=== PATIENT | female | born 1995 | race Caucasian/White ===

== ENCOUNTER 2020-05-18 09:02 | Emergency (ER) | payer MEDICAID, SELFPAY ==
[2020-05-18 09:07] VITALS: BP 117/86; PULSE 100; RESP 18; TEMP 36.4; O2SAT 98
[2020-05-18] MEDS: METOCLOPRAMIDE HCL INJ 10 MG/2 ML VIAL IV PUSH (09:42)
[2020-05-18] MEDS: DEXTROSE 5%/LACTATED RINGERS 1,000 ML 999 ML IV CONT (09:42)
--- NOTE | 2020-05-18 09:42 | PC.NURSE ---
Pt unable to provide urine sample at this time, fluids infusing.
[2020-05-18 09:49] LABS: Basophils Percent Auto 0.3 % (0.2-1.2); Hematocrit 41.2 % (37.0-47.0); Hemoglobin 14.4 g/dL (12.0-15.0); Immature Granulocyte Absolute 0.03 K/mm3 (0.00-0.031); Immature Granulocyte Percent A 0.3 % (0-0.5); Lymphocytes Absolute Auto 1.16 K/mm3 (0.9-3.2); Lymphocytes Percent Auto 9.8 % (18.3-44.2); Mean Corpuscular Volume 91.6 fl (80-100); Mean Platelet Volume 8.4 fl (7.4-10.4); Monocytes Absolute Auto 0.3 K/mm3 (0.1-0.6); Monocytes Percent Auto 2.9 % (2.6-8.5); Neutrophils Absolute Auto 10.3 K/mm3 (1.3-6.7); Neutrophils Percent Auto 86.7 % (45.5-73.1); Platelet Count Result 449 k/mm3 (150-375); Red Cell Distribution Width 12.3 % (11.5-14.5); White Blood Count 11.9 K/mm3 (4.5-10.0)
[2020-05-18 10:02] LABS: Alanine Aminotransferase 17 U/L (4-35); Albumin Level 5.2 g/dL (3.5-5.1); Alkaline Phosphatase 53 U/L (38-126); Anion Gap 20 mmol/L (8-16); Aspartate Amino Transferase 20 U/L (14-36); Bilirubin,Total 0.5 mg/dL (0.2-1.3); Blood Urea Nitrogen 18 mg/dL (7-17); Calcium 11.5 mg/dL (8.4-10.2); Carbon Dioxide 19 mmol/L (22-30); Chloride 101 mmol/L (98-107); Estimated CRCL calculation 119 ml/min; Estimated Glomerular Filt Rate > 60; Glucose 110 mg/dL (65-105); Potassium 3.6 mmol/L (3.4-5.0); Sodium 140 mmol/L (137-145)
--- NOTE | 2020-05-18 10:09 | ED.GENADULT ---
HPI - General Adult General Chief complaint: Nausea/Vomiting/Diarrhea <Isaias Caro PA-C - Last Filed: 05/18/20 12:01> Stated complaint: 9 weeks preg- cant keep anything down <JONNY Avilez Last Filed: 05/18/20 12:01> Time Seen by Provider: 05/18/20 09:14 <JONNY Avilez Last Filed: 05/18/20 12:01> Source: patient <JONNY Avilez Last Filed: 05/18/20 12:01> Mode of arrival: ambulatory <JONNY Avilez Last Filed: 05/18/20 12:01> Limitations: no limitations <JONNY Avilez Last Filed: 05/18/20 12:01> History of Present Illness HPI narrative: Patient presents with CC of persistent nausea and vomiting since finding out she was May 10. She believes she is approximately 9 weeks . She is and reports having persistent vomiting with her previous which required oral medication. She states she is working on obtaining insurance so she has not seen her OBGYN Dr Blake and when she called his office today she was directed to the ER. Patient reports that she smokes and smokes marijuana which typically curbs the nausea, but has not been working the past few days. She denies abdominal pain ,diarrhea, bloody stools or vomits, fever, chills, vaginal bleeding, or any other complaints. <JONNY Avilez Last Filed: 05/18/20 12:01> Related Data Allergies/adverse reactions: Allergies Allergy/AdvReac Type Severity Reaction Status Date / Time No Known Allergies Allergy Verified 05/18/20 09:11 <JONNY Avilez Last Filed: 05/18/20 12:01> Review of Systems Review of Systems: Narrative: CONSTITUTIONAL: Denies fever, chills, or sweats. EYES: Denies visual changes, redness, or discharge. ENT: Denies rhinorrhea, congestion, sore throat, or otalgia. CARDIOVASCULAR: Denies chest pain, palpitations, or edema. RESPIRATORY: Denies cough or dyspnea. GASTROINTESTINAL: Reports nausea and vomiting, Denies abdominal pain or diarrhea. GENITOURINARY: Denies dysuria or hematuria.Denies vaginal bleeding or cramping SKIN: Denies rash or itching. MUSCULOSKELETAL: Denies back pain, myalgia, or joint pain NEUROLOGIC: Denies headache, numbness, dizziness, or weakness. PSYCHIATRIC: Denies anxiety or depression. <Isaias Caro PA-C - Last Filed: 05/18/20 12:01> [facility] Social History Social History: Social History Gender identity (if verbalized by the patient): Female <Isaias Caro PA-C - Last Filed: 05/18/20 12:01> Exam Narrative: Exam Narrative: GENERAL: Appears slightly pale and uncomfortable hunched over emesis bag. HEAD: Normocephalic, atraumatic. EYES: PERRLA and EOMI. ENT: Nares clear, no rhinorrhea or epistaxis. Mucous membranes moist. Oropharynx without tonsillar hypertrophy exudate or other lesions. Bilateral TMs pearly atwood nonbulging NECK: Supple. No adenopathy or masses. No vertebral tenderness or loss of ROM. CHEST: Clear to auscultation. No respiratory distress. No wheezes rales or rhonchi HEART: Regular rate and rhythm. Normal peripheral pulses. ABDOMEN: Soft, nontender, nondistended, normal active bowel sounds. No bruises noted. EXTREMITIES: No acute changes in ROM. No edema. SKIN: Warm, dry, no rash. NEURO: No focal deficits. Alert and oriented x3. Clear speech. PSYCH: Normal mood and affect. <Isaias Caro PA-C - Last Filed: 05/18/20 12:01> Course Course Emergency Course: Adriano reports feeling greatly improved. Her color is more vibrant and she has not had additional vomiting. Reports she was also able to sleep. Has some mild nausea, but requesting snack. States she has called Dr Blake and scheduled follow up appointment for Saturday or Saturday, they are going to contact her back for exact appointment time. She is requesting PO meds for nausea at discharge. Awaiting UA report to r/o uti as urine appeared concentrated. <Isaias Caro PA-C - Last Filed: 05/18/20 12:01> Vital
[2020-05-18 11:26] LABS: Add Urine Microscopic? YES; Appearance Urine Clear (Clear); Bilirubin Urine Negative (Negative); Blood Urine 1+ (Negative); Color Urine Yellow (Yellow); Glucose Urine UA Negative (Negative); Ketones Urine 2+ mg/dL (Negative); Leukocyte Esterase Ur Negative LEU/UL (Negative); Mucus Urine Few /lpf; Nitrate Urine Negative (Negative); Protein Urine 2+ mg/dL (Negative); RBC Urine 0-2 /hpf (0-2); Specific Grav Ur 1.025 (1.001-1.035); Squamous Epithelial Cell Urine Few /hpf (Few); Urobilinogen Urine Negative mg/dL (<2.0); WBC Urine 0-3 /hpf
[2020-05-18 11:40] LABS: Amphetamine Screen Urine Negative (Negative); Barbiturate Screen Urine Negative (Negative); Benzodiazepines Screen Urine Negative (Negative); Cannabinoid Screen Urine Positive (Negative); Cocaine Screen Urine Negative (Negative); Methadone Screen Urine Negative (Negative); Opiate Screen Urine Negative (Negative); Phencyclidine Screen Urine Negative (Negative)
[2020-05-18 11:53] VITALS: BP 106/56; PULSE 93; RESP 14; O2SAT 100
[2020-05-18 12:45] VITALS: BP 106/63; PULSE 69; RESP 14; O2SAT 99
== END 2020-05-18 12:56 | disposition home or self-care (01) ==
PROVIDERS: Physician Assistant; Emergency Provider General Practice
DX: O21.9 Vomiting of pregnancy, unspecified (principal); Z3A.00 Weeks of gestation of pregnancy not specified
CPT/HCPCS: 36415; 80053; 80307; 81001; 84702; 85025; 96361; 96374; 99284; J2765; J7121

== ENCOUNTER 2020-05-26 15:48 | Outpatient (CLI) | payer MEDICAID, SELFPAY ==
--- NOTE | ~2020-05-26 | US_ITS ---
EXAMINATION: US OB <= 14 weeks fetus DATE: 05/26/2020 16:34 INDICATION: First trimester dating TECHNIQUE: Real-time pelvic transabdominal and transvaginal ultrasound was performed. COMPARISON: None. FINDINGS: The uterus measures 11.7 x 6.4 x 8.2 cm. There is an intrauterine gestational sac. There i s a 1.7 x 1.4 x 1.8 cm complex cystic and solid area adjacent to the gestational sac. A yolk sac is i dentified. heart motion is identified measuring 165 beats per minute (bpm) by M-mode Doppler. T he crown rump length measures 3.7 cm , which correlates with an estimated gestational age of 10 weeks and 4 day(s) (+/-) 7 day(s). The ovaries are not visualized however no adnexal abnormality is seen. There is no free fluid in the pelvis. IMPRESSION: 1. Live intrauterine with an estimated gestational age of 10 weeks and 4 day(s) (+/-) 1 day (s) and an estimated delivery date of 12/18/2020. 2. Complex cystic and solid area adjacent to the gestational sac which could reflect a subchorionic h emorrhage or possibly failed twin . Reviewed, dictated and finalized at location A. IMPRESSION: 1. Live intrauterine with an estimated gestational age of 10 weeks an d 4 day(s) (+/-) 1 day(s) and an estimated delivery date of 12/18/2020. 2. Complex cystic and solid area adjacent to the gestational sac which could re flect a subchorionic hemorrhage or possibly failed twin .
== END 2020-05-26 15:49 | disposition home or self-care (01) ==
PROVIDERS: Visit Provider Obstetrics & Gynecology
DX: Z34.90 Encounter for supervision of normal pregnancy, unspecified, unspecified trimester (principal)
CPT/HCPCS: 76801

== ENCOUNTER 2020-07-22 15:05 | Outpatient (CLI) | payer OTHER, SELFPAY ==
--- NOTE | ~2020-07-22 | US_ITS ---
EXAMINATION: US OB follow up DATE: 07/22/2020 15:45 INDICATION: Methylene tetrahydrofolate reductase deficiency, second trimester TECHNIQUE: Real-time ultrasound of the pelvis was performed. The interpreting radiologist was not pre sent for the study. COMPARISON: None. FINDINGS: There is a single living fetus in breech presentation. The placenta is anterior. card iac activity and movement are noted. heart rate is 161 beats per minute (bpm). The amniot ic fluid index is 12 cm which is normal. A 6 mm choroid plexus cyst is noted. The following biometric data were obtained: Biparietal diameter (BPD): 4.1 cm; head circumference (HC): 16.0 cm; abdominal circumference (AC): 13 .3 cm; femur length (FL): 2.8 cm. These measurements are concordant. Estimated weight is 257 g +/- 38 g, which correlates with the 33rd percentile when 12/16/2020 is used as estimated date of delivery. As single measurements, these parameters are each equal to the following estimated gestational ages w ith ranges of +/- 2 standard deviations: BPD: 18 weeks 3 days +/- 1 weeks 5 days. HC: 18 weeks 6 days +/- 1 weeks 3 days. AC: 18 weeks 6 days +/- 2 weeks 0 days. FL: 18 weeks 5 days +/- 1 weeks 6 days. estimated gestational age based solely on measurements from this exam is 18 weeks 5 days +/- 1 weeks 2 days. IMPRESSION: 1. Single living fetus in breech presentation. 2. Estimated weight is 257 g +/- 38 g, which correlates with the 33rd percentile when 12/16/2020 is used as estimated date of delivery. 3. 6 mm choroid plexus cyst. Reviewed, dictated and finalized at location A. ING MACHINE OPERATOR IMPRESSION: 1. Single living fetus in breech presentation. 2. Estimated weight is 257 g +/- 38 g, which correlates with the 33rd per centile when 12/16/2020 is used as estimated date of delivery. 3. 6 mm choroid plexus cyst.
== END 2020-07-22 15:06 | disposition home or self-care (01) ==
PROVIDERS: Visit Provider Obstetrics & Gynecology
DX: E72.12 Methylenetetrahydrofolate reductase deficiency (principal); Z34.92 Encounter for supervision of normal pregnancy, unspecified, second trimester; Z3A.18 18 weeks gestation of pregnancy
CPT/HCPCS: 76816

== ENCOUNTER 2020-08-24 13:31 | Outpatient (CLI) | payer OTHER, SELFPAY ==
--- NOTE | ~2020-08-24 | US_ITS ---
EXAMINATION: US OB >= 14 weeks Fetus DATE: 08/24/2020 14:21 INDICATION: Routine care. Chorioplexus cyst. TECHNIQUE: Real-time ultrasound of the pelvis was performed. The interpreting radiologist was not pre sent for the study. COMPARISON: 07/22/2020 FINDINGS: There is a single living fetus in transverse lie with head to maternal left. The placenta is anterior and not low-lying with caudal margin 4 cm from the internal cervical os. There are couple hypoechoic placental lakes. Normal cervical length measuring approximately 5 cm. heart rate is 161 beats per minute (bpm). The amniotic fluid index is 12.0 cm, which is normal (5th%-95%: 9.8-21.8 cm at 23 weeks estimated gestational age). Again seen is a 6 mm choroid plexus cyst. There is a 2 mm hypoechoi c region in the contralateral choroid plexus, potentially a second core plexus cyst but too small for definitive determination. The following biometric data were obtained: BPD: 4.1 cm -> 18 weeks 3 days Head circumference: 16.0 cm -> 18 weeks 6 days Abdominal circumference: 13.4 cm -> 18 weeks 6 days Femur length: 2.9 cm -> 18 weeks 5 days These measurements are concordant. Head circumference to abdominal circumference ratio: 1.20 (normal range 1.09-1.26). Estimated weight: 258 g (+/-) 39 g. or 9 oz. (+/-) 1 oz. IMPRESSION: 1. Single living fetus in transverse lie with heart rate of 161 bpm. 2. Normal amniotic fluid index of 12.0 cm. 3. Estimated weight is 33rd percentile by Hadlock criteria when 12/26/2020 is used as the estima angie date of delivery (ADELAIDA). Please correlate with clinical information or earlier ultrasounds for mos t accurate ADELAIDA. 4. Unchanged 6 mm choroid plexus cyst. Possible second 2 mm cyst in the contralateral choroid plexus. Reviewed, dictated and finalized at location A. J2EE APPLICATION DEVELOPER IMPRESSION: 1. Single living fetus in transverse lie with heart rate of 161 bpm. 2. Normal amniotic fluid index of 12.0 cm. 3. Estimated weight is 33rd percentile by Hadlock criteria when 12/26/2020 is used as the estimated date of delivery (ADELAIDA). Please correlate with clinica l information or earlier ultrasounds for most accurate ADELAIDA. 4. Unchanged 6 mm choroid plexus cyst. Possible second 2 mm cyst in the contral ateral choroid plexus.
== END 2020-08-24 13:32 | disposition home or self-care (01) ==
PROVIDERS: Visit Provider Obstetrics & Gynecology
DX: Z34.90 Encounter for supervision of normal pregnancy, unspecified, unspecified trimester (principal); G93.0 Cerebral cysts; Z3A.18 18 weeks gestation of pregnancy
CPT/HCPCS: 76805

== ENCOUNTER 2020-12-11 06:54 | Inpatient (IN) | payer OTHER, SELFPAY ==
--- NOTE | 2020-12-09 16:44 | PM.IMHP ---
H&P: HPI History of Present Illness Date/Time: 12/09/20 16:44 25 yo F smoker presents for elective induction of labor at 39 weeks. complicated by MTHFR, hyperemesis gravidarum, and CT. she understands her condition procedure and risks involved and agrees to proceed she understands maternal or indications for delivery with risk involved including but not limited to bleeding infection injury to bladder and bowel baby pelvic vessels TVT pneumonia wound infections UTI risk of anesthesia understands risk dystocia and hemorrhage Chief Complaint: term Elective induction of labor Review of Systems Review of Systems: All systems reviewed & are unremarkable except as noted in HPI and below Constitutional: Constitutional: Reports no additional constitutional complaints Eyes: Eyes: Reports no additional eye complaints ENT: Reports system reviewed and no additional complaints, except as documented Cardiovascular: Cardiovascular: Reports no additional cardiovascular complaints Respiratory: Respiratory: Reports no additional respiratory complaints Gastrointestinal: Gastrointestinal: Reports no additional gastrointestinal complaints Genitourinary: Genitourinary: Reports no additional female genitourinary complaints Musculoskeletal: Musculoskeletal: Reports no additional musculoskeletal complaints Integumentary/Breasts: Skin/Breast: Reports system reviewed and no additional complaints, except as docu Neurologic: Reports system reviewed and no additional complaints, except as documented Psychiatric: Psychiatric: Reports no additional psychiatric complaints Endocrine: Endocrine: Reports no additional endocrine complaints Hematologic/Lymphatic: Hematologic/Lymphatic: Reports no additional hematologic/lymphatic complaints Allergic/Immunologic: Allergic/Immunologic: Reports no additional allergic/immunologic complaints [facility] Past Medical History Medical History (Updated 12/09/20 @ 16:53 by Richi Blake MD) Candidiasis of vagina Homozygous MTHFR mutation C677T Rubella non-immune status, antepartum Smoker Vaginal delivery 07/25/2015138.51 hrs.7 lbs.4 oz.[facility]aginalFull [facility] Family History Family History (Updated 12/09/20 @ 16:54 by Richi Blake MD) Other Diabetes mellitus Heart disease Social History Social History (Updated 12/09/20 @ 16:55 by Richi Blake MD) Smoking status: Current every day smoker Tobacco type: cigarettes Second hand tobacco smoke exposure: Yes Alcohol intake: never Substance use: never Substance use type: marijuana Living arrangements: with family Occupation/Education: unemployed Gender identity (if verbalized by the patient): Female Sexual Orientation (if Verbalized by the Patient): Straight or Heterosexual Spiritual care concerns: No Agree to blood products: Yes Meds Home Medications and Allergies Home Medications Medication Instructions Recorded Confirmed Type omeprazole 40 mg PO DAILY 11/18/20 11/18/20 History ondansetron HCl [Zofran] 4 mg PO Q8H PRN 11/18/20 11/18/20 History sucralfate 1 g PO QID 11/18/20 11/18/20 History Allergies Allergy/AdvReac Type Severity Reaction Status Date / Time No Known Allergies Allergy Verified 11/18/20 13:12 Exam Const: General: cooperative, healthy appearing, comfortable, no acute distress, well developed, alert, awake and Physically active Nutritional Appearance: average body habitus and well nourished Orientation/consciousness: patient oriented x3 Limitations: no limitations HENMT: Head: normal to inspection Eyes: General: appearance normal, both eyes and all related structures Neck: Neck: normal visual inspection and full ROM Chest: Chest palpation & inspection: normal inspection of the chest Breast/axilla inspection: normal inspection of the breasts Resp: Effort & Inspection: normal respirator
--- NOTE | 2020-12-09 16:46 | WPDHPUPDATE1 ---
History and Physical Update Update Date/Time: 12/11/2020 0700 History and Physical has been reviewed, including an updated exam of the patient. There are NO changes in the patient's condition. Risks, benefits, and alternatives have been discussed and questions answered. Patient agrees to proceed with procedure. 25 yo F smoker presents for elective induction of labor at 39 weeks. complicated by MTHFR, hyperemesis gravidarum, and CT. she understands her condition procedure and risks involved and agrees to proceed she understands maternal or indications for delivery with risk involved including but not limited to bleeding infection injury to bladder and bowel baby pelvic vessels TVT pneumonia wound infections UTI risk of anesthesia understands risk dystocia and hemorrhage
--- NOTE | 2020-12-09 16:47 | WPDOBADMIT ---
Obstetrics - Admit Note Admission Note: record reviewed. No pertinent additions to the history and/or any subsequent changes in the physical findings that are not consistent with the expected course of the were found. Additions to the history and/or subsequent changes in the physical findings follow. None. 12/11/2020 0700 25 yo F smoker presents for elective induction of labor at 39 weeks. complicated by MTHFR, hyperemesis gravidarum, and CT. she understands her condition procedure and risks involved and agrees to proceed she understands maternal or indications for delivery with risk involved including but not limited to bleeding infection injury to bladder and bowel baby pelvic vessels TVT pneumonia wound infections UTI risk of anesthesia understands risk dystocia and hemorrhage
[2020-12-11] VITALS (19 sets, daily range): BP systolic 94–123; BP diastolic 27–77; PULSE 58–168; RESP 18; TEMP 36.7–36.8; O2SAT 90–100
--- NOTE | 2020-12-11 07:21 | LDADM ---
This patient, Savannah Moody, was admitted to Labor/Delivery/Recovery 104 on 12/11/20 at 06:54. Plans for labor, pain management and were discussed with patient. Patient/family oriented to hospital policies and general routines including ID bracelet, bed and alarms, visiting hours, pain management, procedures, bathroom and other care routines, personal items, smoking policy, room service/diet and guest tray routines, security routines, and visiting hours. Patient/Family are encouraged to report perceived risks to care and to ask questions if they do not understand what they are told or what they should do. See OBIX for further documentation.
[2020-12-11] MEDS: OXYTOCIN 30 UNITS/NS 500 ML 30 UNITS/500 ML BAG IV CONT (08:11)
[2020-12-11] MEDS: LACTATED RINGERS 1,000 ML 125 ML IV CONT (08:11)
[2020-12-11 08:24] LABS: Basophils Absolute Auto 0.1 K/mm3 (0.0-0.1); Basophils Percent Auto 0.3 % (0.2-1.2); Eosinophils Absolute Auto 0.4 K/mm3 (0-0.3); Eosinophils Percent Auto 2.2 % (0-4.4); Hematocrit 33.8 % (37.0-47.0); Hemoglobin 11.5 g/dL (12.0-15.0); Immature Granulocyte Absolute 0.16 K/mm3 (0.00-0.031); Immature Granulocyte Percent A 0.8 % (0-0.5); Lymphocytes Absolute Auto 3.17 K/mm3 (0.9-3.2); Lymphocytes Percent Auto 16.1 % (18.3-44.2); Mean Corpuscular Hemoglobin 32.6 pg (26-34); Mean Corpuscular Volume 95.8 fl (80-100); Monocytes Absolute Auto 1.1 K/mm3 (0.1-0.6); Monocytes Percent Auto 5.6 % (2.6-8.5); Neutrophils Absolute Auto 14.8 K/mm3 (1.3-6.7); Platelet Count Result 406 k/mm3 (150-375); Red Blood Count 3.53 M/mm3 (4.2-5.4); Red Cell Distribution Width 13.2 % (11.5-14.5); White Blood Count 19.7 K/mm3 (4.5-10.0)
[2020-12-11 08:36] LABS: Amphetamine Screen Urine Negative (Negative); Barbiturate Screen Urine Negative (Negative); Benzodiazepines Screen Urine Negative (Negative); Cannabinoid Screen Urine Positive (Negative); Cocaine Screen Urine Negative (Negative); Methadone Screen Urine Negative (Negative); Opiate Screen Urine Negative (Negative); Phencyclidine Screen Urine Negative (Negative)
--- NOTE | 2020-12-11 10:25 | PM.OBPNLAB ---
Pain Control Date/time seen: 12/11/20 10:00 Pain control: tolerating well Comments: SROM clear af rapid progress to complete Pelvic Exam Dilation (cm): 10 Effacement (%): 100 station: +2 Amniotic membrane status: Ruptured Contractions Monitor mode: External Contraction frequency: 2 Contraction duration: 45 Contraction pattern: Regular Contraction phase: Contraction Contraction intensity: Strong/Firm Status status: Category l Assessment and Plan Pitocin rate (mU/min): 2 Assessment: active labor Plan: continuous present management Comments: deliver
--- NOTE | 2020-12-11 10:28 | P.PCNOB_ITS ---
OB - Delivery Note Procedure Delivery date: 12/11/20 Procedure: Normal spontaneous vertex vaginal delivery a viable female infant and placenta events: Labor Induction Intrapartal events: Precipitous Labor < 3 hours Induction method: per pitocin protocol Delivery monitor: external FHT and external uterine Route of delivery: Episiotomy description: None Laceration Description: None Specimen: Yes (Placenta, cord blood, cord blood gases) Quantitative Blood Loss (ml): 250 Anesthesia type: None Disposition: floor Complications: None Narrative: Dr. Bowers present for delivery normal spontaneous vertex vaginal delivery a viable female infant over an intact perineum infant delivered and placed onto the maternal abdomen cord clamped and cut the had spontaneous respirations and cry no observed abnormalities handed to the nursery nurse in attendance Apgars 8 9 weight 6 lb 13 oz. Placenta delivered intact three-vessel cord uterus contracted well Pitocin given intravenously no cuts tears or lacerations uterus is firm no sponges were left in the vagina counts correct complications none [place] Baby Date of : 12/11/20 Time of : 10:06 Weeks of gestation at delivery: 39 Infant gender: Female Weight (pounds): 6 Weight (ounces): 3 presentation: vertex position: Left Occiput Anterior Placenta delivery description: Spontaneous and Normal Configuration cord vessel description: 3 Vessels score one minute: 8 score five minutes: 9 Narrative: 6 lb 3 oz Apgars 8 9 normal transition taken to the nursery b 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
[2020-12-11] MEDS: OXYTOCIN 30 UNITS/NS 500 ML 30 UNITS/500 ML BAG 125 UNITS IV CONT (10:37)
[2020-12-11] MEDS: IBUPROFEN 600 MG TABLET PO ×2 (10:52→19:27)
--- NOTE | 2020-12-11 17:27 | PC.NURSE ---
1328 Pt admitted to room 282 per wheelchair from labor and delivery after spontaneous vaginal delivery of viable female infant today at 1006; mother had a precipitous delivery, delivered by Dr. Bowers for Dr Blake. Mother is a and is choosing to breast feed infant; FOB present; couple oriented to room, staffing and procedures. Admission folder reviewed. Pt's VSS and assessment WNL.
--- NOTE | 2020-12-11 17:52 | PC.NURSE ---
pt has gone out to smoke one time since admission to second floor. She was now been advised to try to breast feed first, prior to smoking. Pt also aware that she had a positive urine drug screen for Marijauna, and that baby will be tested as well. Meconium specimen for drug screen collected and sent; mother also was given handout on Breast feeding and smoking marijauna.
[2020-12-12] MEDS: IBUPROFEN 600 MG TABLET PO ×2 (00:59→07:30)
[2020-12-12 04:12] VITALS: BP 107/77; PULSE 77; RESP 18; TEMP 36.7; O2SAT 99
[2020-12-12 04:43] LABS: Hematocrit 30.2 % (37.0-47.0); Hemoglobin 10.2 g/dL (12.0-15.0)
--- NOTE | 2020-12-12 07:01 | PM.OBPNVD ---
OB - PN: Subj Subjective Date/time seen: 12/12/20 07:01 Patient comments: no complaints, pain well controlled, tolerating diet and flatus present baby status: doing well feeding status: exclusively breast feeding OB - PN: Obj Data Labs CBC & Chem 7: 12/12/20 04:20 Labs: Laboratory Results - last 24 hr 12/11/20 12/11/20 12/11/20 07:11 07:11 08:07 WBC 19.7 H RBC 3.53 L Hgb 11.5 L Hct 33.8 L MCV 95.8 MCH 32.6 MCHC 34.0 RDW 13.2 Plt Count 406 H MPV 9.0 Immature Gran % (Auto) 0.8 H Neut % (Auto) 75.0 H Lymph % (Auto) 16.1 L Tate % (Auto) 5.6 Eos % (Auto) 2.2 Baso % (Auto) 0.3 Lymph # (Auto) 3.17 Tate # (Auto) 1.1 H Eos # (Auto) 0.4 H Baso # (Auto) 0.1 Abs Immat Gran (auto) 0.16 H Absolute Neuts (auto) 14.8 H Absolute Nucleated RBC 0.0 Nucleated RBC % 0.0 Urine Opiates Screen Negative Urine Methadone Screen Negative Ur Barbiturates Screen Negative Ur Phencyclidine Scrn Negative Ur Amphetamine Screen Negative U Benzodiazepines Scrn Negative Urine Cocaine Screen Negative U Cannabinoids Screen Positive A Blood Type O Positive Antibody Screen Negative 12/12/20 04:20 WBC RBC Hgb 10.2 L Hct 30.2 L MCV MCH MCHC RDW Plt Count MPV Immature Gran % (Auto) Neut % (Auto) Lymph % (Auto) Tate % (Auto) Eos % (Auto) Baso % (Auto) Lymph # (Auto) Tate # (Auto) Eos # (Auto) Baso # (Auto) Abs Immat Gran (auto) Absolute Neuts (auto) Absolute Nucleated RBC Nucleated RBC % Urine Opiates Screen Urine Methadone Screen Ur Barbiturates Screen Ur Phencyclidine Scrn Ur Amphetamine Screen U Benzodiazepines Scrn Urine Cocaine Screen U Cannabinoids Screen Blood Type Antibody Screen OB - PN A/P Assessment and Plan (1) Term delivered: Code(s): O80 - Encounter for full-term uncomplicated delivery Status: Acute Plan day: 1 Plan: routine care, discharge home and follow up 6 weeks Time Spent With Patient Time: Total time spent is greater than 50% in coordination of care (as documented) at patient's floor/unit and/or counseling patient: Time with patient: less than 15 minutes Review of Systems Review of Systems: All systems reviewed & are unremarkable except as noted in HPI and below Exam Const: General: comfortable, no acute distress, alert and awake Orientation/consciousness: patient oriented x3 Chest: Breast/axilla inspection: normal inspection of the breasts Resp: Effort & Inspection: normal respiratory effort Auscultation: clear to auscultation bilaterally Cardio: Rate: regular rate GI: GI Palp: Yes Soft to palpation Auscultation: normal bowel sounds : External Female Exam: normal external appearance Bimanual exam- vagina & uterus: non-tender Psych: Appearance: grossly normal Affect: normal affect Attitude: cooperative Thought content: Yes Normal thought content present
--- NOTE | 2020-12-12 07:07 | PM.OBDSVD ---
DS: Admitting Diagnosis Admitting Diagnosis Admitting Diagnosis: Term Elective induction of labor Smoker Rubella nonimmune Homozygous MTHFR DS: Discharge Diagnosis Discharge Diagnosis (1) Term delivered: Code(s): O80 - Encounter for full-term uncomplicated delivery Status: Acute (2) Encounter for elective induction of labor: Code(s): Z34.90 - Encounter for supervision of normal , unspecified, unspecified trimester Status: Acute (3) Homozygous MTHFR mutation C677T: Code(s): Z15.89 - Genetic susceptibility to other disease Status: Acute (4) Smoker: Code(s): F17.200 - Nicotine dependence, unspecified, uncomplicated Status: Acute (5) Rubella non-immune status, antepartum: Code(s): O99.891 - Other specified diseases and conditions complicating ; Z28.3 - Underimmunization status Status: Acute OB - DS: Summary Hospital Course Time spent discussing smoking cessation with patient: 3 to 10 minutes OB Procedures : Ultrasound OB Procedures Intrapartum: Spontaneous Vag Delivery OB Procedures: : None Peripartum Data Infant Delivery Method: Natural Vaginal Laceration Description: None Episiotomy description: Midline complications: none [place] 1: Gender: Female Disposition of : home Status at Discharge Functional status at discharge: independent ambulation Overall status at discharge: patient is back to baseline Time Spent with Patient Time attestation: Total time spent providing and/or coordinating discharge services: Time spent: Less than 30 minutes Exam Const: General: cooperative, healthy appearing, comfortable, no acute distress, well developed, alert, awake and Physically active Nutritional Appearance: average body habitus Orientation/consciousness: patient oriented x3 Limitations: no limitations HENMT: Head: normal to inspection Eyes: General: appearance normal, both eyes and all related structures Neck: Neck: normal visual inspection and full ROM Chest: Chest palpation & inspection: normal inspection of the chest Breast/axilla inspection: normal inspection of the breasts Resp: Effort & Inspection: normal respiratory effort Auscultation: clear to auscultation bilaterally Cardio: Rate: regular rate Rhythm: regular rhythm GI: Inspection: normal to inspection GI Palp: Yes Soft to palpation Auscultation: normal bowel sounds : External Female Exam: normal external appearance Bimanual exam- vagina & uterus: non-tender Back/Spine/Pelvis: Back: no CVA tenderness Skin: General skin exam: normal color Neuro: General: patient oriented x3, gait normal, tone normal and moves all extremities Extrem: General: normal to inspection, full ROM and no calf tenderness Psych: Appearance: grossly normal Mental Status: mental status grossly normal Speech and movement: Normal speech and movement present Affect: normal affect Attitude: cooperative Thought process: Normal thought process present Thought content: Yes Normal thought content present Insight: Good insight present (Psych) Judgement: Good judgement present (Psych) DS: Data Data Completed and Pending Labs on day of discharge: Labs from last 24 hours 12/11/20 12/11/20 12/11/20 08:07 07:11 07:11 WBC RBC Hgb Hct MCV MCH MCHC RDW Plt Count MPV Immature Gran % (Auto) Neut % (Auto) Lymph % (Auto) Dixon % (Auto) Eos % (Auto) Baso % (Auto) Lymph # (Auto) Dixon # (Auto) Eos # (Auto) Baso # (Auto) Abs Immat Gran (auto) Absolute Neuts (auto) Absolute Nucleated RBC Nucleated RBC % Urine Opiates Screen Negative Urine Methadone Screen Negative Ur Barbiturates Screen Negative Ur Phencyclidine Scrn Negative Ur Amphetamine Screen Negative U Benzodiazepines Scrn Negative Urine Cocaine Screen Negative U Cannabinoid
[2020-12-12 07:30] VITALS: BP 110/79; PULSE 59; RESP 16; TEMP 36.5; O2SAT 100
[2020-12-12] MEDS: DOCUSATE SODIUM 100 MG CAPSULE PO (07:30)
[2020-12-12] MEDS: MULTIVIT/MIN/PREN/FOL AC/IRON TABLET 1 TAB PO (07:30)
--- NOTE | 2020-12-12 10:05 | PC.NURSE ---
Mother called out for assist with feeding. Consulted with patient, mother reports has been sleepy with feeding, she will latch nursing for short periods and falling asleep. Mother has been given a nipple shield and prefers not to use shield. Mother reports mastitis with first child, mother went out and did not pump or empty for 9+ hours and woke up with engorgement and mastitis the next day. Discussed possible reasoning for previous mastitis and reviewed precautions to prevent with this child. Mother is concerned with using shield and do not want to be nipple confused. Discussed possible reasoning for shield use. Mother does not feel infant will nurse better or longer using nipple shield. Reviewed application and cleaning of shield. Discussed nipple shield precautions and possible complications. Discussed the need to initiate pumping if infant continues to nurse with the shield. Patient verbalizes understanding. Mother has nipple discomfort with latch during first part of the feeding that quickly resolves. Reviewed nipple care of lanolin, warm compresses several times per day and gel pads as needed. Reviewed feeding cues, frequencies, duration of feedings, feeding elimination flow sheet, and signs of adequate intake. Demonstrated stimulation techniques to wake infant for feeding. Assisted with infant to breast. Reviewed positioning/alignment in cross cradle, holding breast in U hold and guided asymmetrical latch on. was able to latch within a few attempts. Infant nursed eagerly with steady draws and occasional swallowing noted for short bursts followed with long pausing. Reviewed signs of a correct latch, effective nursing and suck swallow ratio. Mother reports she does not believe infant has been latched as deeply as this feeding and she has not has not held breast for latch or during feeding. Discussed reasoning to assist with deep latch and to maintain deep latch. Mother reported tenderness at times, infant had slipped to shallow latch. Demonstrated how to adjust latch more deeply while feeding. Mother quickly reports she can feel is latched more deeply and has minimal tenderness. Reviewed the difference of effective feeding vs ineffective feeding. Suggested to stimulate infant while feeding to keep infant awake and nursing effectively for increased stimulation,increased intake and to assist with maintaining deep latch. Mother wishes to go home at 24 hours. Discussed infant feeding and suggested mother stay another day for assist with feeding or next few feedings. Reviewed adequate signs of infant intake and to initiate supplementation after feedings if less than required or infant does not effectively feed every three hours. Mother was able to independently latch infant with appropriate positioning/alignment this feeding. She reported slight nipple discomfort, and was able to correct with adjustment of latch. Stressed the importance of feeding as required and waking to feed if needed. Infant is currently meeting outcomes for weight, output, jaundice and feeding frequencies. Mother states she feels confident to continue effective at home. Reviewed transition to breast milk, signs of adequate intake, and engorgement/relief. Instructed to call ICP if intake/output less than required. Reviewed regular medications mother is taking. Information provided per Francy. Reviewed community resources on the [facility] website and in the Mom/Baby guide. Information on outpatient services provided. Mother has no further questions at this time.
[2020-12-12 11:30] LABS: Rapid Plasma Reagin Non-Reactive (NonReactive)
--- NOTE | 2020-12-12 11:49 | PCCCNOTE ---
Received referral for positive Cannaboids for pt. and baby. Nursing indicates no other concerns or issues. Met with pt. and father of baby at bedside. They are aware of same. Pt. denies any history with DCFS. Pt. and father of baby indicate having all needed items to care for baby at return home. They live together and have a 5 year old son together that lives with them. He is staying with pt.'s parents during hospitalization. They have support from family on both sides as well as friends. Reported this to DCFS and pt. situation does not meet criteria for an investigation, it will be kept on file (Intake#[id number]). Offered additional resources and pt. accepted same. Encouraged she contact any/all of interest. Nursing aware of above. No further care coordination needs indicated at this time.
[2020-12-12] MEDS: MEASLES,MUMPS,RUBELLA VACCINE 0.5 ML VIAL SUB-Q (14:05)
--- NOTE | 2020-12-12 15:34 | PC.NURSE ---
Motrin showed on D/C paperwork as prescribed but not sent to Pharmacy, there was not a script on the hard chart either. Told pt to check at her Pharmacy to see if it was sent from the MDs office and if not to take OTC Motrin and use as directed. She V/U'd.
[2020-12-14 10:38] VITALS: BP 131/76; PULSE 79; RESP 20; TEMP 37.4; O2SAT 98
--- NOTE | 2021-01-04 12:59 | PC.NURSE ---
Mother called in to Services with questions concerning weight and . Mother states she has seen her Pedi Dr. Curran as scheduled, is not gaining weight. 's weight was 6#3 infant was seen Tuesday 01/02 and weight was 6#0. has recommended mother go to [facility] for work up for low weight gain and to begin supplementing 2 oz of formula after each feeding. Mother reports she is putting to breast each feeding for 20 minutes, infant appears satisfied after. Mother denies difficulties or discomfort with latch or feeding. Mother has pumped several times after and has 25+ oz in freezer. Infant has had at least 10 wets and stools per day as reported by mother. Mother reports breasts feel full before feeding and softer after. Advised mother to follow her ICP advise. Suggested mother offer EBM after each feeding and pump to increase supply and offer EBM to infant each feeding. Offered for mother to come in for appointment for a pre and post weight and observation of feeding. Mother states she is a [facility] client and has talked with them concerning supplementation and will contact them for appointment for pre and post weight check. Discussed the importance of following her ICP advised and the importance of nutrition/hydration in for proper development. Again offered mother appointment for assist/observation of feeding. Mother declines reporting she will call [facility].
== END 2020-12-12 14:29 | disposition home or self-care (01) | DRG 560 ==
LOC: ANHLDR 10:40 → ANHOB2 13:53
PROVIDERS: Admitting Provider Obstetrics & Gynecology; Visit Provider Obstetrics & Gynecology
DX: O62.3 Precipitate labor (principal); O99.284 Endocrine, nutritional and metabolic diseases complicating childbirth; E72.12 Methylenetetrahydrofolate reductase deficiency; O99.334 Smoking (tobacco) complicating childbirth; F17.210 Nicotine dependence, cigarettes, uncomplicated; O99.324 Drug use complicating childbirth; F12.90 Cannabis use, unspecified, uncomplicated; Z3A.39 39 weeks gestation of pregnancy; Z37.0 Single live birth
CPT/HCPCS: 36415; 80307; 85014; 85018; 85025; 86592; 86850; 86900; 86901; 88307; 90710; A9270; J2590; J7120

== ENCOUNTER 2022-07-28 12:05 | Emergency (ER) | payer OTHER, SELFPAY ==
--- NOTE | ~2022-07-28 | CT_ITS ---
EXAMINATION: CT abdomen pelvis w con DATE: 07/28/2022 14:25 INDICATION: Diffuse abdominal pain, nausea and vomiting TECHNIQUE: Computed tomography (CT) of the abdomen and pelvis was performed with 100 mL Omnipaque-350 intravenous contrast. Automated exposure control and iterative reconstruction technique were employe d. The dose-length product was 279.77 mGy-cm. COMPARISON: None FINDINGS: Lung bases are clear. Heart size normal. No pericardial or pleural effusion. Liver, gallbladder, sple en, pancreas, bilateral adrenal glands and left kidney are normal. 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 There is fluid scattere d throughout multiple loops of nondilated small bowel as well as the proximal colon consistent with d iarrhea and possible gastroenteritis. Mild diffuse wall thickening of the gastric antrum. Normal appe ndix. Partially collapsed peripherally enhancing 1.7 cm corpus luteum cyst at the right ovary. Anteve rted uterus and left adnexa are unremarkable. Bladder is normal. Small amount of likely physiologic f ree fluid in the cul-de-sac. No abscess or free intraperitoneal gas. No pathologically enlarged abdom inal or pelvic lymphadenopathy. Mild thoracolumbar dextrocurvature. IMPRESSION: 1. Fluid throughout the nondilated small bowel and proximal colon as well as some mild wall thickenin g at the gastric antrum suggestive of a gastroenteritis. 2. Likely partially collapsed corpus luteum cyst in the right ovary with small amount of likely physi ologic free fluid in the cul-de-sac. Reviewed, dictated and finalized at location A. [employer] IMPRESSION: 1. Fluid throughout the nondilated small bowel and proximal colon as well as so me mild wall thickening at the gastric antrum suggestive of a gastroenteritis. 2. Likely partially collapsed corpus luteum cyst in the right ovary with small amount of likely physiologic free fluid in the cul-de-sac.
[2022-07-28 12:08] VITALS: BP 118/75; PULSE 120; RESP 18; TEMP 36.3; O2SAT 100
[2022-07-28 13:34] LABS: Basophils Absolute Auto 0.1 K/mm3 (0.0-0.1); Basophils Percent Auto 0.4 % (0.2-1.2); Eosinophils Absolute Auto 0.6 K/mm3 (0-0.3); Eosinophils Percent Auto 2.4 % (0-4.4); Hematocrit 46.2 % (37.0-47.0); Hemoglobin 15.4 g/dL (12.0-15.0); Immature Granulocyte Percent A 0.4 % (0-0.5); Lymphocytes Absolute Auto 1.05 K/mm3 (0.9-3.2); Lymphocytes Percent Auto 4.5 % (18.3-44.2); Mean Corpuscular HGB Conc 33.3 g/dl (32-36); Mean Corpuscular Hemoglobin 31.3 pg (26-34); Mean Corpuscular Volume 93.9 fl (80-100); Mean Platelet Volume 8.5 fl (7.4-10.4); Monocytes Absolute Auto 0.9 K/mm3 (0.1-0.6); Neutrophils Absolute Auto 20.5 K/mm3 (1.3-6.7); Neutrophils Percent Auto 88.3 % (45.5-73.1); Platelet Count Result 365 k/mm3 (150-375); Red Blood Count 4.92 M/mm3 (4.2-5.4); Red Cell Distribution Width 13.5 % (11.5-14.5); White Blood Count 23.2 K/mm3 (4.5-10.0)
[2022-07-28 13:42] LABS: Lactic Acid Reflex 1.3 mmol/L (0.7-2.0)
[2022-07-28 13:43] LABS: Alanine Aminotransferase 21 U/L (6-35); Albumin Level 5.5 g/dL (3.5-5.1); Alkaline Phosphatase 42 U/L (38-126); Anion Gap 8 mmol/L (8-16); Aspartate Amino Transferase 24 U/L (14-36); Bilirubin,Total 0.5 mg/dL (0.2-1.3); Blood Urea Nitrogen 19 mg/dL (7-17); Carbon Dioxide 25 mmol/L (22-30); Chloride 103 mmol/L (98-107); Estimated CRCL calculation 99 ml/min; Estimated Glomerular Filt Rate > 60; Glucose 100 mg/dL (65-110); Lipase 76 U/L (23-300); Potassium 4.1 mmol/L (3.4-5.0); Sodium 136 mmol/L (137-145)
[2022-07-28 13:54] LABS: Mucus Urine Heavy /lpf; RBC Urine 0-2 /hpf (0-2); Squamous Epithelial Cell Urine Occasional /hpf (Few); WBC Urine 0-3 /hpf
[2022-07-28 13:57] LABS: Add Urine Microscopic? YES; Appearance Urine Clear (Clear); Bilirubin Urine Negative (Negative); Blood Urine Trace-Intact (Negative); Color Urine Yellow (Yellow); Glucose Urine UA Negative (Negative); Ketones Urine Trace mg/dL (Negative); Leukocyte Esterase Ur Negative LEU/UL (Negative); Nitrate Urine Negative (Negative); Protein Urine Trace mg/dL (Negative); Specific Grav Ur >= 1.030 (1.001-1.035); Urobilinogen Urine 0.2 mg/dL (<2.0)
--- NOTE | 2022-07-28 13:58 | ED.ABDPAIN ---
HPI - Abdominal Pain General Chief Complaint: Abdominal Pain Stated Complaint: abdominal pain Time Seen by Provider: 07/28/22 13:07 History of Present Illness HPI narrative: 26-year-old female here for evaluation of diffuse abdominal pain, nausea and vomiting over the past day. Patient states that her pain began as a slight cramp this morning. The pain has since increased in severity and location, and is now present across her entire abdomen. She also notes several episodes of vomiting stomach acid . Denies diarrhea. Denies sick contacts, new or suspicious foods. Related Data Allergies Allergy/AdvReac Type Severity Reaction Status Date / Time No Known Allergies Allergy Verified 07/28/22 12:06 Review of Systems Review of Systems: Gen: Denies fevers or chills Eyes: Denies eye pain or visual change ENT: Denies congestion Respiratory: Denies shortness of breath or cough CV: Denies chest pain or palpitations GI: Reports abdominal pain, nausea and vomiting. Denies diarrhea. : denies burning, urgency, frequency or hematuria Musculoskeletal: Denies back pain or muscle pain Neuro: Denies numbness, tingling, weakness or focal weakness Skin: Denies rash Except as documented, all other systems reviewed and negative [facility] Past Medical History Medical History Candidiasis of vagina Homozygous MTHFR mutation C677T Rubella non-immune status, antepartum Smoker Vaginal delivery 07/25/2015138.51 hrs.7 lbs.4 oz.MVaginalFull Term [facility] Family History Family History Other Diabetes mellitus Heart disease Social History Social History Smoking packs per day: 0.5 Smoking cigarettes per day: 10.0 Years smoked: 10 Smoking pack-years: 5.00 Smoking status: Current every day smoker Tobacco type: cigarettes Second hand tobacco smoke exposure: Yes Alcohol intake: never Substance use: never Substance use type: marijuana Gender identity (if verbalized by the patient): Female Sexual Orientation (if Verbalized by the Patient): Straight or Heterosexual Spiritual care concerns: No Agree to blood products: Yes Exam Narrative: APPEARANCE: Well appearing, no pain in distress, well-nourished. Head: Normocephalic and atraumatic. EYES: PERRLA/EOMI, conjunctivae clear NOSE: No nasal drainage EARS: External ear normal in appearance THROAT: Oropharynx is clear. Mucous membranes are moist. NECK: Supple. No adenopathy, no masses. RESPIRATORY: Airway patent, respirations nonlabored. Clear to auscultation bilaterally, no rales, rhonchi, wheezing. CARDIOVASCULAR: Regular rate and rhythm without murmurs, rubs, or gallops. ABDOMINAL: No abdominal tenderness. Normoactive bowel sounds. Soft, nondistended. No rebound tenderness or guarding. MUSCULOSKELETAL: Extremities are warm and well-perfused. Moves all extremities well. No edema. NEURO: Normal speech. No focal neurologic deficits. SKIN: Skin is warm and dry. No rashes. PSYCHIATRIC: Normal affect/mood. Course Vital Signs Vital signs: Vital Signs Temperature 97.4 F L 07/28/22 12:08 Pulse Rate 120 H 07/28/22 12:08 Respiratory Rate 18 07/28/22 12:08 Blood Pressure 118/75 07/28/22 12:08 Pulse Oximetry 100 07/28/22 12:08 Oxygen Delivery Room Air 07/28/22 12:08 Temperature 97.4 F L 07/28/22 12:08 Pulse Rate 88 07/28/22 16:01 Respiratory Rate 18 07/28/22 16:01 Blood Pressure 96/63 L 07/28/22 16:01 Pulse Oximetry 97 07/28/22 16:01 Oxygen Delivery Room Air 07/28/22 12:08 MDM - Abdominal Pain MDM Narrative Medical decision making narrative: 26-year-old female here for evaluation of nausea, vomiting and abdominal pain over the past day. Patient has no abdominal tenderness to palpation. She is slightly tachycardic to 1
[2022-07-28] MEDS: SODIUM CHLORIDE 0.9% IV 1,000 ML 999 ML IV CONT ×2 (13:59→14:14)
[2022-07-28] MEDS: FAMOTIDINE 20 MG/2 ML VIAL IV PUSH (14:00)
[2022-07-28] MEDS: ONDANSETRON INJ 4 MG/2 ML VIAL IV PUSH (14:00)
[2022-07-28 16:01] VITALS: BP 96/63; PULSE 88; RESP 18; O2SAT 97
== END 2022-07-28 16:08 | disposition home or self-care (01) ==
PROVIDERS: Emergency Provider Physician Assistant
DX: K52.9 Noninfective gastroenteritis and colitis, unspecified (principal); F17.210 Nicotine dependence, cigarettes, uncomplicated
CPT/HCPCS: 36415; 74177; 80053; 81001; 81025; 83605; 83690; 85025; 96365; 96366; 96375; 99284; J0131; J2405; J7030; Q9967